=== PATIENT | female | born 1940 | race Caucasian/White ===

== ENCOUNTER 2022-01-31 20:52 | Outpatient (REF) | payer MEDICARE, SELFPAY ==
[2022-01-31 21:33] LABS: Anion Gap 9.6 mmol/L (3-11); BUN 13 mg/dL (7-18); CO2 30.4 mmol/L (21.0-32.0); CREATININE 1.2 mg/dL (0.55-1.02); Calcium 8.4 mg/dL (8.5-10.1); Chloride 103 mmol/L (98-107); Estimated GFR 44.91 (mL/min/1.73m2); Glucose 111 mg/dL (74-106); Potassium 3.7 mmol/L (3.5-5.1); Sodium 143 mmol/L (136-145)
== END 2022-01-31 20:53 | disposition home or self-care (01) ==
LOC: LBN 20:52
PROVIDERS: Visit Provider Family Medicine
DX: I50.89 Other heart failure (principal)
CPT/HCPCS: 80048

== ENCOUNTER 2022-02-07 18:05 | Outpatient (REF) | payer MEDICARE, SELFPAY ==
[2022-02-07 18:16] LABS: Anion Gap 6.3 mmol/L (3-11); BUN 14 mg/dL (7-18); CO2 31.7 mmol/L (21.0-32.0); CREATININE 1.1 mg/dL (0.55-1.02); Calcium 8.6 mg/dL (8.5-10.1); Chloride 101 mmol/L (98-107); Estimated GFR 49.86 (mL/min/1.73m2); Glucose 107 mg/dL (74-106); Potassium 4.2 mmol/L (3.5-5.1); Sodium 139 mmol/L (136-145)
== END 2022-02-07 18:06 | disposition home or self-care (01) ==
LOC: LBN 18:05
PROVIDERS: Visit Provider Family Medicine
DX: I50.89 Other heart failure (principal)
CPT/HCPCS: 80048

== ENCOUNTER 2022-02-14 14:11 | Outpatient (REF) | payer MEDICARE, SELFPAY ==
[2022-02-14 16:26] LABS: Anion Gap 8.8 mmol/L (3-11); BUN 24 mg/dL (7-18); CO2 36.2 mmol/L (21.0-32.0); CREATININE 1.4 mg/dL (0.55-1.02); Calcium 9.1 mg/dL (8.5-10.1); Chloride 95 mmol/L (98-107); Estimated GFR 37.33 (mL/min/1.73m2); Glucose 132 mg/dL (74-106); Sodium 140 mmol/L (136-145)
[2022-02-14 16:34] LABS: Potassium 2.9 mmol/L (3.5-5.1)
== END 2022-02-14 14:12 | disposition home or self-care (01) ==
LOC: LBN 14:11
PROVIDERS: PCP Family Medicine; Visit Provider Family Medicine
DX: I50.89 Other heart failure (principal)
CPT/HCPCS: 80048

== ENCOUNTER 2022-02-15 13:37 | Outpatient (REF) | payer MEDICARE, SELFPAY ==
[2022-02-15 14:02] LABS: Potassium 3.5 mmol/L (3.5-5.1)
== END 2022-02-15 13:38 | disposition home or self-care (01) ==
LOC: NCHCN 13:37
PROVIDERS: PCP Family Medicine; Visit Provider Family Medicine
DX: I50.89 Other heart failure (principal)
CPT/HCPCS: 84132

== ENCOUNTER 2022-02-21 14:44 | Outpatient (REF) | payer MEDICARE, SELFPAY ==
[2022-02-21 15:06] LABS: Abs Immature Grans 0.05 10^3/uL (0.0-0.06); Absolute Basophil Count 0.07 10^3/uL (0.0-0.2); Absolute Eosinophil Count 0.09 10^3/uL (0.0-0.7); Absolute Lymphocyte Count 2.97 10^3/uL (1.2-3.4); Absolute Monocyte Count 0.92 10^3/uL (0.1-0.8); Absolute Neutrophil Count 7.58 10^3/uL (1.2-6.7); Basophils % 0.6; Eosinophils % 0.8; HCT 42.6 % (36.0-46.0); HGB 13.6 g/dL (11.2-15.7); Immature Grans % 0.4; Lymphocytes % 25.4; MCH 30.4 pg (27.0-33.0); MCHC 31.9 % (32.0-36.0); MCV 95 fL (80-95); MPV 11.6 fL (8.0-11.0); Monocytes % 7.9; Neutrophils % 64.9; Platelet Count 342 10^3/uL (130-400); RBC 4.48 10^6/uL (3.93-5.22); RDW 15.8 % (11.7-14.6); RDW-SD 54.8 fL; WBC 11.68 10^3/uL (4.4-10.8)
[2022-02-21 15:17] LABS: ALT 14 U/L (14-59); AST 23 U/L (15-37); Albumin 3.5 g/dL (3.4-5.0); Alkaline Phosphatase 98 U/L (46-116); Anion Gap 16.6 mmol/L (3-11); BUN 17 mg/dL (7-18); Bilirubin, Total 0.9 mg/dL (0.2-1.0); CO2 20.4 mmol/L (21.0-32.0); CREATININE 1.2 mg/dL (0.55-1.02); Calcium 9.2 mg/dL (8.5-10.1); Chloride 102 mmol/L (98-107); Estimated GFR 44.91 (mL/min/1.73m2); Glucose 138 mg/dL (74-106); Potassium 4.4 mmol/L (3.5-5.1); Sodium 139 mmol/L (136-145); Total Protein 7.4 g/dL (6.4-8.2)
[2022-02-21 15:31] LABS: Bilirubin, Direct 0.2 mg/dL (0.0-0.2)
== END 2022-02-21 14:45 | disposition home or self-care (01) ==
LOC: LBN 14:44
PROVIDERS: PCP Family Medicine; Visit Provider Family Medicine
DX: I50.89 Other heart failure (principal)
CPT/HCPCS: 80048; 80076; 85025

== ENCOUNTER 2022-02-23 14:23 | Outpatient (REF) | payer MEDICARE, SELFPAY ==
[2022-02-23 14:57] LABS: Bilirubin Negative (Negative); Blood Small (Negative); Clarity Cloudy (Clear); Glucose Negative (Negative); Ketones Negative (Negative); Leukocyte Esterase Moderate (Negative); Nitrite Negative (Negative); Urobilinogen 0.2 EU/dL (Up TO 0.2); pH 6.5 (5-8)
[2022-02-23 15:05] LABS: Bacteria Few HPF (Negative); C & S Indicated? Yes; Casts Negative LPF (Negative); Crystals Negative HPF (Negative); Epithelial Cells Few HPF (Negative); Mucus Negative (Negative); RBC 0-2 HPF (0-2); WBC >50 HPF (0-5)
== END 2022-02-23 14:24 | disposition home or self-care (01) ==
LOC: LBN 14:23
PROVIDERS: PCP Family Medicine; Visit Provider Family Medicine
DX: N39.0 Urinary tract infection, site not specified (principal)
CPT/HCPCS: 81003; 81015; 87086

== ENCOUNTER 2022-02-28 16:08 | Outpatient (REF) | payer MEDICARE, SELFPAY ==
[2022-02-28 15:21] LABS: Anion Gap 9.4 mmol/L (3-11); BUN 15 mg/dL (7-18); CO2 28.6 mmol/L (21.0-32.0); CREATININE 1.1 mg/dL (0.55-1.02); Calcium 9.1 mg/dL (8.5-10.1); Chloride 104 mmol/L (98-107); Estimated GFR 49.86 (mL/min/1.73m2); Glucose 114 mg/dL (74-106); Potassium 4.4 mmol/L (3.5-5.1); Sodium 142 mmol/L (136-145)
== END 2022-02-28 16:09 | disposition home or self-care (01) ==
LOC: NCHCN 16:08
PROVIDERS: PCP Family Medicine; Visit Provider Family Medicine
DX: I50.89 Other heart failure (principal)
CPT/HCPCS: 80048

== ENCOUNTER 2022-03-02 20:41 | Outpatient (REF) | payer MEDICARE, SELFPAY ==
[2022-03-02 21:06] LABS: Bilirubin Negative (Negative); Blood Moderate (Negative); Clarity Cloudy (Clear); Glucose Negative (Negative); Ketones Negative (Negative); Leukocyte Esterase Large (Negative); Nitrite Negative (Negative); Urobilinogen 0.2 EU/dL (Up TO 0.2); pH 6.5 (5-8)
[2022-03-02 21:33] LABS: WBC >50 HPF (0-5)
[2022-03-02 21:34] LABS: C & S Indicated? Yes
== END 2022-03-02 20:42 | disposition home or self-care (01) ==
LOC: LBN 20:41
PROVIDERS: PCP Family Medicine; Visit Provider Family Medicine
DX: N39.0 Urinary tract infection, site not specified (principal)
CPT/HCPCS: 81003; 81015; 87086

== ENCOUNTER 2022-03-08 08:55 | Outpatient (REF) | payer MEDICARE, SELFPAY ==
[2022-03-08 09:58] LABS: Anion Gap 12.2 mmol/L (3-11); BUN 17 mg/dL (7-18); CO2 28.8 mmol/L (21.0-32.0); CREATININE 1.1 mg/dL (0.55-1.02); Calcium 9.4 mg/dL (8.5-10.1); Chloride 102 mmol/L (98-107); Estimated GFR 49.86 (mL/min/1.73m2); Glucose 138 mg/dL (74-106); Sodium 143 mmol/L (136-145)
== END 2022-03-08 08:56 | disposition home or self-care (01) ==
LOC: NCHCN 08:55
PROVIDERS: PCP Family Medicine; Visit Provider Family Medicine
DX: I50.89 Other heart failure (principal)
CPT/HCPCS: 80048

== ENCOUNTER 2022-03-14 14:42 | Outpatient (REF) | payer MEDICARE, SELFPAY ==
[2022-03-14 15:56] LABS: Anion Gap 9.2 mmol/L (3-11); BUN 16 mg/dL (7-18); CO2 28.8 mmol/L (21.0-32.0); CREATININE 1.2 mg/dL (0.55-1.02); Calcium 9.2 mg/dL (8.5-10.1); Chloride 103 mmol/L (98-107); Estimated GFR 44.91 (mL/min/1.73m2); Glucose 136 mg/dL (74-106); Potassium 3.9 mmol/L (3.5-5.1); Sodium 141 mmol/L (136-145)
== END 2022-03-14 14:43 | disposition home or self-care (01) ==
LOC: NCHCN 14:42
PROVIDERS: PCP Family Medicine; Visit Provider Family Medicine
DX: I50.89 Other heart failure (principal)
CPT/HCPCS: 80048

== ENCOUNTER 2022-03-22 15:09 | Outpatient (REF) | payer MEDICARE, SELFPAY ==
[2022-03-22 16:09] LABS: Anion Gap 4.3 mmol/L (3-11); BUN 17 mg/dL (7-18); CO2 32.7 mmol/L (21.0-32.0); CREATININE 1.2 mg/dL (0.55-1.02); Calcium 8.8 mg/dL (8.5-10.1); Chloride 104 mmol/L (98-107); Estimated GFR 44.91 (mL/min/1.73m2); Glucose 107 mg/dL (74-106); Potassium 4.1 mmol/L (3.5-5.1); Sodium 141 mmol/L (136-145)
== END 2022-03-22 15:10 | disposition home or self-care (01) ==
LOC: NCHCN 15:09
PROVIDERS: PCP Family Medicine; Visit Provider Family Medicine
DX: I50.89 Other heart failure (principal)
CPT/HCPCS: 80048

== ENCOUNTER 2022-03-28 12:04 | Outpatient (REF) | payer MEDICARE, SELFPAY ==
[2022-03-28 13:31] LABS: Anion Gap 7.4 mmol/L (3-11); BUN 17 mg/dL (7-18); CO2 29.6 mmol/L (21.0-32.0); CREATININE 1.4 mg/dL (0.55-1.02); Calcium 8.8 mg/dL (8.5-10.1); Chloride 106 mmol/L (98-107); Estimated GFR 37.33 (mL/min/1.73m2); Glucose 152 mg/dL (74-106); Potassium 4.4 mmol/L (3.5-5.1); Sodium 143 mmol/L (136-145)
== END 2022-03-28 12:05 | disposition home or self-care (01) ==
LOC: NCHCN 12:04
PROVIDERS: PCP Family Medicine; Visit Provider Family Medicine
DX: I50.89 Other heart failure (principal)
CPT/HCPCS: 80048

== ENCOUNTER 2022-04-04 15:48 | Outpatient (REF) | payer MEDICARE, SELFPAY ==
[2022-04-04 15:33] LABS: Anion Gap 7.1 mmol/L (3-11); BUN 18 mg/dL (7-18); CO2 31.9 mmol/L (21.0-32.0); CREATININE 1.3 mg/dL (0.55-1.02); Calcium 8.4 mg/dL (8.5-10.1); Chloride 102 mmol/L (98-107); Glucose 112 mg/dL (74-106); Potassium 4.5 mmol/L (3.5-5.1); Sodium 141 mmol/L (136-145)
== END 2022-04-04 15:49 | disposition home or self-care (01) ==
LOC: LBN 15:48
PROVIDERS: PCP Family Medicine; Visit Provider Family Medicine
DX: I50.89 Other heart failure (principal)
CPT/HCPCS: 80048

== ENCOUNTER 2022-04-11 17:00 | Outpatient (REF) | payer MEDICARE, SELFPAY ==
[2022-04-11 18:33] LABS: BUN 17 mg/dL (7-18); CREATININE 1.1 mg/dL (0.55-1.02); Calcium 8.7 mg/dL (8.5-10.1); Chloride 102 mmol/L (98-107); Estimated GFR 49.86 (mL/min/1.73m2); Glucose 118 mg/dL (74-106); Potassium 3.7 mmol/L (3.5-5.1); Sodium 142 mmol/L (136-145)
== END 2022-04-11 17:01 | disposition home or self-care (01) ==
LOC: LBN 17:00
PROVIDERS: PCP Family Medicine; Visit Provider Family Medicine
DX: I50.89 Other heart failure (principal); R79.89 Other specified abnormal findings of blood chemistry
CPT/HCPCS: 80048

== ENCOUNTER 2022-04-18 18:06 | Outpatient (REF) | payer MEDICARE, SELFPAY ==
[2022-04-18 19:03] LABS: Anion Gap 8.9 mmol/L (3-11); BUN 23 mg/dL (7-18); CO2 30.1 mmol/L (21.0-32.0); CREATININE 1.5 mg/dL (0.55-1.02); Calcium 9.4 mg/dL (8.5-10.1); Chloride 104 mmol/L (98-107); Estimated GFR 34.36 (mL/min/1.73m2); Glucose 125 mg/dL (74-106); Sodium 143 mmol/L (136-145)
== END 2022-04-18 18:07 | disposition home or self-care (01) ==
LOC: LBN 18:06
PROVIDERS: PCP Family Medicine; Visit Provider Family Medicine
DX: I50.89 Other heart failure (principal)
CPT/HCPCS: 80048

== ENCOUNTER 2022-05-07 23:59 | Outpatient (REF) | payer MEDICARE, SELFPAY ==
[2022-05-08 00:12] LABS: Bilirubin Small (Negative); Blood Large (Negative); Clarity Cloudy (Clear); Glucose Negative (Negative); Ketones Negative (Negative); Leukocyte Esterase Trace (Negative); Nitrite Positive (Negative); Specific Gravity 1.015 (1.005-1.025)
[2022-05-08 00:16] LABS: C & S Indicated? Yes; RBC >50 HPF (0-2)
== END 2022-05-08 | disposition home or self-care (01) ==
LOC: NCHCN 23:59
PROVIDERS: PCP Family Medicine; Visit Provider Family Medicine
DX: N39.0 Urinary tract infection, site not specified (principal)
CPT/HCPCS: 81003; 81015; 87086

== ENCOUNTER 2022-05-16 16:00 | Outpatient (REF) | payer MEDICARE, SELFPAY ==
[2022-05-16 16:55] LABS: BUN 21 mg/dL (7-18); CREATININE 1.4 mg/dL (0.55-1.02); Calcium 9.3 mg/dL (8.5-10.1); Chloride 104 mmol/L (98-107); Estimated GFR 37.33 (mL/min/1.73m2); Glucose 113 mg/dL (74-106); Sodium 144 mmol/L (136-145)
== END 2022-05-16 16:01 | disposition home or self-care (01) ==
LOC: LBN 16:00
PROVIDERS: PCP Family Medicine; Visit Provider Family Medicine
DX: I50.89 Other heart failure (principal); N18.30 Chronic kidney disease, stage 3 unspecified
CPT/HCPCS: 80048

== ENCOUNTER 2022-05-31 22:27 | Outpatient (REF) | payer MEDICARE, SELFPAY ==
[2022-05-31 22:37] LABS: HCT 43.8 % (36.0-46.0); HGB 14.3 g/dL (11.2-15.7); MCH 30.3 pg (27.0-33.0); MCHC 32.6 % (32.0-36.0); MCV 93 fL (80-95); MPV 10.9 fL (8.0-11.0); Platelet Count 341 10^3/uL (130-400); RBC 4.72 10^6/uL (3.93-5.22); RDW 15.1 % (11.7-14.6); RDW-SD 50.8 fL; WBC 12.23 10^3/uL (4.4-10.8)
[2022-05-31 22:39] LABS: Bilirubin Negative (Negative); Blood Moderate (Negative); Clarity Clear (Clear); Glucose Negative (Negative); Ketones Negative (Negative); Leukocyte Esterase Trace (Negative); Nitrite Negative (Negative); Specific Gravity 1.015 (1.005-1.025); Urobilinogen 0.2 mg/dL (Up to 0.2)
[2022-05-31 22:47] LABS: Bacteria Negative HPF (Negative); C & S Indicated? No; Casts Negative LPF (Negative); Crystals Negative HPF (Negative); Epithelial Cells Many HPF (Negative); Mucus Negative (Negative); Other Cells Negative (Negative); WBC 0-2 HPF (0-5)
[2022-05-31 22:58] LABS: Anion Gap 11.1 mmol/L (3-11); BUN 21 mg/dL (7-18); CO2 25.9 mmol/L (21.0-32.0); CREATININE 1.4 mg/dL (0.55-1.02); Calcium 9.4 mg/dL (8.5-10.1); Chloride 102 mmol/L (98-107); Estimated GFR 37.33 (mL/min/1.73m2); Glucose 161 mg/dL (74-106); Potassium 4.4 mmol/L (3.5-5.1); Sodium 139 mmol/L (136-145)
== END 2022-05-31 22:28 | disposition home or self-care (01) ==
LOC: LBN 22:27
PROVIDERS: PCP Family Medicine; Visit Provider Family Medicine
DX: N39.0 Urinary tract infection, site not specified (principal); I12.9 Hypertensive chronic kidney disease with stage 1 through stage 4 chronic kidney disease, or unspecified chronic kidney disease; N18.30 Chronic kidney disease, stage 3 unspecified; D59.0 Drug-induced autoimmune hemolytic anemia
CPT/HCPCS: 80048; 85027; 81003; 81015

== ENCOUNTER 2022-06-14 18:18 | Outpatient (REF) | payer MEDICARE, SELFPAY ==
[2022-06-15 16:50] LABS: Anion Gap 12.2 mmol/L (3-11); BUN 47 mg/dL (7-18); CO2 25.8 mmol/L (21.0-32.0); CREATININE 1.6 mg/dL (0.55-1.02); Calcium 9.3 mg/dL (8.5-10.1); Chloride 103 mmol/L (98-107); Glucose 158 mg/dL (74-106); Potassium 4.6 mmol/L (3.5-5.1); Sodium 141 mmol/L (136-145)
== END 2022-06-14 18:19 | disposition home or self-care (01) ==
LOC: LBN 18:18
PROVIDERS: PCP Family Medicine; Visit Provider Family Medicine
DX: N18.30 Chronic kidney disease, stage 3 unspecified (principal); I10 Essential (primary) hypertension
CPT/HCPCS: 80048

== ENCOUNTER 2022-06-28 16:31 | Outpatient (REF) | payer MEDICARE, SELFPAY ==
[2022-06-28 18:59] LABS: Anion Gap 14.5 mmol/L (3-11); BUN 47 mg/dL (7-18); CO2 25.5 mmol/L (21.0-32.0); CREATININE 1.4 mg/dL (0.55-1.02); Calcium 9.4 mg/dL (8.5-10.1); Chloride 102 mmol/L (98-107); Estimated GFR 37.33 (mL/min/1.73m2); Glucose 234 mg/dL (74-106); Potassium 5.4 mmol/L (3.5-5.1); Sodium 142 mmol/L (136-145)
== END 2022-06-28 16:32 | disposition home or self-care (01) ==
LOC: LBN 16:31
PROVIDERS: PCP Family Medicine; Visit Provider Family Medicine
DX: I10 Essential (primary) hypertension (principal); I50.32 Chronic diastolic (congestive) heart failure
CPT/HCPCS: 80048